=== PATIENT | male | born 1955 | race Caucasian/White ===

== ENCOUNTER 2025-07-17 09:25 | Emergency (ER) | payer MEDICARE, BC ==
[~2025-07-17] VITALS: Ht 170.2 cm; Wt 76.2 kg
[2025-07-17 09:57] VITALS: BP 117/68; TEMP 97.5; O2SAT 100
== END 2025-07-17 10:06 | disposition home or self-care (01) ==
LOC: ER 09:43
DX: R00.2 Palpitations (principal); Z86.79 Personal history of other diseases of the circulatory system
CPT/HCPCS: 99283; 93005; J7030